=== PATIENT | female | born 1970 ===

== ENCOUNTER 2016-11-07 09:39 | Emergency (ER) | payer OTHER ==
[2016-11-07 09:39] VITALS: BMI 25.9
[2016-11-07 09:55] VITALS: BP 109/74; PULSE 77; RESP 17; TEMP 97.9; O2SAT 100
[2016-11-07] MEDS ORDERED: Naproxen 550 mg Tab PO STA (10:10)
[2016-11-07] MEDS ORDERED: Naproxen 550 mg Tab PO ONE (10:19)
--- NOTE | 2016-11-07 10:29 | C.PDOC ---
History Of Present Illness 46 y/o female presents to the ED for evaluation of left-sided shoulder pain which began this morning. Patient describes a mild soreness at posterior shoulder which radiates down her left arm. She denies taking any medications prior to arrival. She denies fever, chills, chest pain, shortness of breath, cough, rash or direct injury/trauma to the affected area. Time Seen by Provider: 11/07/16 09:47 Chief Complaint (Nursing): Upper Extremity Problem/Injury History Per: Patient History/Exam Limitations: no limitations Onset/Duration Of Symptoms: Hrs Current Symptoms Are (Timing): Still Present Quality: "Pain" Severity: Mild Exacerbating Factor(s): Movement Additional History Per: Patient Past Medical History Reviewed: Historical Data, Nursing Documentation, Vital Signs Vital Signs: Last Vital Signs Temp 97.9 F 11/07/16 09:51 Pulse 77 11/07/16 09:51 Resp 17 11/07/16 09:51 BP 109/74 11/07/16 09:51 Pulse Ox 100 11/07/16 12:53 - Medical History PMH: No Chronic Diseases Surgical History: No Surg Hx - [facility] Procedures NEBULIZER THERAPY (01/11/12) Family History: States: No Known Family Hx - Social History Hx Tobacco Use: No Hx Alcohol Use: No Hx Substance Use: No - Immunization History Hx Tetanus Toxoid Vaccination: No Hx Influenza Vaccination: No Hx Pneumococcal Vaccination: No Review Of Systems Except As Marked, All Systems Reviewed And Found Negative. Constitutional: Negative for: Fever, Chills Cardiovascular: Negative for: Chest Pain, Palpitations Respiratory: Negative for: Cough, Shortness of Breath Musculoskeletal: Positive for: Shoulder Pain (left ), Arm Pain (left ) Skin: Negative for: Rash Neurological: Negative for: Weakness, Numbness Physical Exam - Physical Exam Appears: Well, Non-toxic, No Acute Distress Skin: Normal Color, Warm, Dry, No Rash, No Other (erythema to shoulder ) Head: Atraumatic, Normacephalic Eye(s): bilateral: Normal Inspection Oral Mucosa: Moist Neck: Supple Chest: Symmetrical, No Deformity Cardiovascular: Rhythm Regular Respiratory: Normal Breath Sounds, No Rales, No Rhonchi, No Wheezing Extremity: Normal ROM, Tenderness (mild TTP immediately superior to left scapula ), Capillary Refill (<2 seconds all digits ), No Deformity, No Swelling Extremity: Bilateral: Atraumatic, Normal Color And Temperature, Normal ROM Pulses: Left Radial: Normal, Right Radial: Normal Neurological/Psych: Oriented x3, Normal Motor, Normal Sensation Gait: Steady ED Course And Treatment O2 Sat by Pulse Oximetry: 100 (on RA) Pulse Ox Interpretation: Normal - Other Rad left shoulder XR X-Ray: Interpreted by Me, Viewed By Me, Read By Radiologist Interpretation: Accession No. : [id number]. Patient Name / ID : ARTIS CORREIA / [id number]. Exam Date : 11/07/2016 10:16:30 ( Approved ). Study Comment : Sex / Age : F / 46Y. Creator : Anthony Coello MD. Dictator : Anthony Coello MD. Office Asst : Rotary Bar Operator : Anthony Coello MD. Approver2 : Report Date : 11/07/2016 12:29:35. My Comment : . PROCEDURE: Radiographs of the Left Shoulder. HISTORY: LEFT SHOULDER PAIN. COMPARISON: No prior. FINDINGS: BONES: Normal. No fracture. JOINTS: Normal. Glenohumeral and acromioclavicular joints preserved. No osteoarthritis. SOFT TISSUES: Normal. OTHER FINDINGS: None. IMPRESSION: Normal radiographs of the left shoulder. Progress Note: Patient given PO Naprosyn & flexeril. Xray of left shoulder ordered and reviewed. Left shoulder XR ordered and reviewed. Reevaluation Time: 10:40 Reassessment Condition: Improved (On reassessment, patient states her pain has improved and she feels better. Xrays unremarkable. Patient given rxs for Naprosyn and Flexeril, and was instructed to follow up with orthopedics within 1 week. She understands she should return to ED if symptoms worsen.) Disposition Counseled Patient/Family Regarding: Studies Performed, Diagnosis, Need For Followup, Rx Given - Disposition Referrals: Brandie Cbaallero MD [Staff Provider] - [facility] [[facility]] [facility] [Outside] Disposition: HOME/ ROUTINE Disposition Time: 10:40 Condition: STABLE Additional Instructions: SEGUIMIENTO CON ORTOPEDIA DENTRO DE 1 SEMANA USE LOS MEDICAMENTOS JUNIOR SEA NECESARIO DEVUELVA A LA ANUSHA DE EMERGENCIA SI LOS SNTOMAS EMPEORARAN Prescriptions: Cyclobenzaprine [Cyclobenzaprine HCl] 10 mg PO BID PRN #12 tab PRN Reason: pain/muscle Naproxen [Naprosyn Tab] 375 mg PO BID PRN #20 tab PRN Reason: pain Instructions: Shoulder Sprain (ED) Forms: [employer] (Malagasy) Print Language: UZBEK - POA Present On Arrival: None - Clinical Impression Clinical Impression: Sprain of left shoulder, Muscle spasm - Scribe Statement The provider has reviewed the documentation as recorded by the Scribe (Kaela Zavala) Provider Attestation: All medical record entries made by the Scribe were at my direction and personally dictated by me. I have reviewed the chart and agree that the record accurately reflects my personal performance of the history, physical exam, medical decision making, and the department course for this patient. I have also personally directed, reviewed, and agree with the discharge instructions and disposition.
--- NOTE | 2016-11-07 12:31 | RAD ---
PROCEDURE: Radiographs of the Left Shoulder HISTORY: LEFT SHOULDER PAIN COMPARISON: No prior. FINDINGS: BONES: Normal. No fracture. JOINTS: Normal. Glenohumeral and acromioclavicular joints preserved. No osteoarthritis. SOFT TISSUES: Normal. OTHER FINDINGS: None. IMPRESSION: Normal radiographs of the left shoulder.
== END 2016-11-07 10:49 | disposition home or self-care (01) ==
LOC: C.ER 09:39
DX: S43.402A Unspecified sprain of left shoulder joint, initial encounter (principal); X58.XXXA Exposure to other specified factors, initial encounter; M62.838 Other muscle spasm

== ENCOUNTER 2017-08-22 15:51 | Emergency (ER) | payer OTHER ==
[2017-08-22 15:56] VITALS: BMI 27.8
[2017-08-22 15:59] VITALS: BP 120/82; PULSE 86; RESP 18; TEMP 98.8; O2SAT 100
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
== END 2017-08-22 17:13 | disposition home or self-care (01) ==
LOC: C.ER 15:51
DX: S00.83XA Contusion of other part of head, initial encounter (principal); Y04.0XXA Assault by unarmed brawl or fight, initial encounter

== ENCOUNTER 2017-12-03 13:01 | Emergency (ER) | payer OTHER ==
[2017-12-03 13:04] VITALS: BMI 27.3
[2017-12-03 13:09] VITALS: BP 134/88; PULSE 95; RESP 18; TEMP 98.8; O2SAT 99
[2017-12-03] MEDS ORDERED: Apap-Butalbital-Caffeine 325-50-40mg Tab PO STA (13:20)
[2017-12-03] MEDS ORDERED: Apap-Butalbital-Caffeine 325-50-40mg Tab ONE (13:34)
--- NOTE | 2017-12-03 13:35 | C.PDOC ---
History Of Present Illness 47-year-old female, presents to the emergency department with complaints of a generalized headache ongoing for the past five days. Pain is throbbing in nature, associated with a dry cough. Patient is taking Tylenol at home with minimal relief, prompting visit She denies any numbness/weakness, nausea/vomiting, fever, or any other associated symptoms. No other complaints at this time. Time Seen by Provider: 12/03/17 13:14 Chief Complaint (Nursing): Headache History Per: Patient History/Exam Limitations: no limitations Onset/Duration Of Symptoms: Days Current Symptoms Are (Timing): Still Present Past Medical History Reviewed: Historical Data, Nursing Documentation, Vital Signs Vital Signs: Last Vital Signs Temp 98.8 F 12/03/17 13:04 Pulse 95 H 12/03/17 13:04 Resp 18 12/03/17 13:04 BP 134/88 12/03/17 13:04 Pulse Ox 99 12/03/17 13:04 - Medical History PMH: Migraine - [facility] Procedures NEBULIZER THERAPY (01/11/12) Family History: States: No Known Family Hx - Social History Hx Tobacco Use: No Hx Alcohol Use: No Hx Substance Use: No - Immunization History Hx Tetanus Toxoid Vaccination: No Hx Influenza Vaccination: No Hx Pneumococcal Vaccination: No Review Of Systems Constitutional: Negative for: Fever Respiratory: Positive for: Cough. Negative for: Shortness of Breath, Sputum Neurological: Positive for: Headache. Negative for: Weakness, Numbness Physical Exam - Physical Exam Appears: Non-toxic, No Acute Distress Skin: Warm, Dry, No Rash Head: Atraumatic, Normacephalic, No Tenderness, No Swelling Eye(s): bilateral: Normal Inspection, PERRL, EOMI Ear(s): Bilateral: Normal Nose: Normal Oral Mucosa: Moist Lips: Normal Appearing Neck: Normal ROM Cardiovascular: Rhythm Regular, No Murmur Respiratory: Normal Breath Sounds, No Accessory Muscle Use Gastrointestinal/Abdominal: Normal Exam Back: Normal Inspection Extremity: Normal ROM, No Deformity Neurological/Psych: Oriented x3, Normal Speech, Normal Motor, Normal Sensation Gait: Steady ED Course And Treatment O2 Sat by Pulse Oximetry: 99 Pulse Ox Interpretation: Normal (RA) Medical Decision Making Medical Decision Making: Plan: * Viktor Solano Patient remained afebrile alert and oriented with stable vital signs during ER evaluation. On re-examination, patient is resting comfortably in no acute distress. Patient reports improvement of symptoms. Patient has no neurologic deficit, photophobia, rash, fever, or nuchal rigidity. Patient was Patient feels comfortable going home and will be discharged. Patient given follow up instructions. Instructed to return to ER if symptoms worsen or new symptoms arise. Disposition Counseled Patient/Family Regarding: Diagnosis, Need For Followup, Rx Given - Disposition Referrals: [facility] [Outside] [facility] [Outside] Disposition: HOME/ ROUTINE Disposition Time: 13:40 Condition: STABLE Additional Instructions: Vaya a courtney mdico o la clnica en 2-5 aguero sin falta, para mas evaluacin. Bena los medicamentos jael indicado. Volver a la ty de emergencia en cualquier momento si los sntomas persisten o empeoran. Prescriptions: Acetaminophen/Butalbital/Caf [Fioricet] 1 tab PO TID PRN #20 tab PRN Reason: Headache Benzonatate [Tessalon Perles] 100 mg PO TID #30 sgl Ibuprofen [Motrin] 600 mg PO Q8 #30 tab Instructions: Headache, Adult (DC) Forms: [employer] (Thai) Print Language: FRISIAN - POA Present On Arrival: None - Clinical Impression Clinical Impression: Headache - Scribe Statement The provider has reviewed the documentation as recorded by the Scribe (Leslie Wayne) All medical record entries made by the Scribe were at my direction and personally dictated by me. I have reviewed the chart and agree that the record accurately reflects my personal performance of the history, physical exam, medical decision making, and the department course for this patient. I have also personally directed, reviewed, and agree with the discharge instructions and disposition.
== END 2017-12-03 13:52 | disposition home or self-care (01) ==
LOC: C.ER 13:01
DX: R51 Headache (principal)